=== PATIENT | female | born 1980 | race African-American/Black ===

== ENCOUNTER → 2018-01-04 | Emergency (ER) | payer SELFPAY ==
[~2018-01-04] VITALS: Ht 165.1 cm; Wt 63.5 kg
--- NOTE | 2018-01-04 00:30 | NUR ---
Dr. Hirsch at bedside for MSE.
--- NOTE | 2018-01-04 00:41 | NUR ---
Patient discharged to home in stable conditon. Written and verbal after care instructions given. Patient verbalizes understanding of instructions. Prescription provided.
== END | disposition home or self-care (01) ==
LOC: ER 00:08
DX: R21 Rash and other nonspecific skin eruption (principal)
CPT/HCPCS: A4663